=== PATIENT | female | born 1985 | race Caucasian/White ===

== ENCOUNTER 2017-03-30 02:13 | Emergency (ER) | payer BC ==
--- NOTE | 2017-03-30 02:31 | EDM.PDOC ---
ED HPI GENERAL MEDICAL PROBLEM - General Chief Complaint: General Stated Complaint: AMBULANCE Time Seen by Provider: 03/30/17 02:28 Source of Information: Reports: Patient, Family History Limitations: Reports: No Limitations - History of Present Illness INITIAL COMMENTS - FREE TEXT/NARRATIVE: brought in for episode of unresponsiveness. spouse states pt was carrying her cat then suddenly heard her fall and found her unresponsive and legs jerking. denies prior h/o, and denies h/o seizures. pt unable recall what happened and feels scared. - Related Data Allergies Allergy/AdvReac Type Severity Reaction Status Date / Time naproxen Allergy Hives Verified 03/30/17 02:15 Home Meds: Home Meds Citalopram [Celexa] 10 mg PO DAILY 03/30/17 [History] Citalopram [Celexa] 20 mg PO DAILY 03/30/17 [History] Omeprazole 20 mg PO DAILY 03/30/17 [History] Past Medical History Gastrointestinal History: Reports: GERD Psychiatric History: Reports: Anxiety Social & Family History - Tobacco Use Smoking Status *Q: Current Some Day Smoker Years of Tobacco use: 15 Packs/Tins Daily: 1 - Caffeine Use Caffeine Use: Reports: Coffee - Recreational Drug Use Recreational Drug Use: No ED ROS GENERAL - Review of Systems Review Of Systems: ROS reveals no pertinent complaints other than HPI. ED EXAM, GENERAL - Physical Exam Exam: See Below Exam Limited By: No Limitations General Appearance: Alert, WD/WN, Anxious, Other (crying hyperventilating) Eye Exam: Bilateral Eye: PERRL (pupils ess ER @ 4mm) Ears: Hearing Grossly Normal Throat/Mouth: Normal Voice, No Airway Compromise Head: Atraumatic Neck: Non-Tender, Full Range of Motion Respiratory/Chest: No Respiratory Distress Cardiovascular: Regular Rate, Rhythm GI/Abdominal: Soft, Non-Tender Neurological: Alert, Oriented, Normal Cognition, Normal Gait, No Motor/Sensory Deficits Psychiatric: Tearful Skin Exam: Warm, Dry, Normal Color Lymphatic: No Adenopathy Course - Vital Signs Last Recorded V/S: Last Vital Signs Temp 36.3 C 03/30/17 02:15 Pulse 105 H 03/30/17 02:15 Resp 21 H 03/30/17 02:15 BP 133/97 H 03/30/17 02:15 Pulse Ox 100 03/30/17 02:15 - Orders/Labs/Meds Orders: Active Orders 24 hr Category Date Time Status Head wo Cont [CT] Urgent Exams 03/30/17 02:27 Taken LORazepam [Ativan] Med 03/30/17 03:38 Once 1 mg PO ONETIME ONE Labs: Laboratory Tests 03/30/17 03/30/17 03/30/17 Range/Units 02:20 02:20 02:20 WBC 8.8 (5.0-10.0) 10^3/uL RBC 3.93 L (4.2-5.4) 10^6/uL Hgb 11.3 L (12.0-16.0) g/dL Hct 34.2 L (37.0-47.0) % MCV 87.0 (80-100) fL MCH 28.8 (27.0-34.0) pg MCHC 33.0 (33.0-35.0) g/dL Plt Count 316 (150-450) 10^3/uL Neut % (Auto) 32.8 L (42.2-75.2) % Lymph % (Auto) 50.9 H (20.5-50.1) % [place] % (Auto) 10.0 H (2-8) % Eos % (Auto) 5.7 H (1.0-3.0) % Baso % (Auto) 0.6 (0.0-1.0) % Sodium 134 L (135-145) mmol/L Potassium 3.8 (3.6-5.0) mmol/L Chloride 101 (101-111) mmol/L Carbon Dioxide 23.0 (21.0-31.0) mmol/L Anion Gap 13.8 BUN 10 (7-18) mg/dL Creatinine 0.8 (0.6-1.3) mg/dL Est Cr Clr Drug Dosing 93.63 mL/min Estimated GFR (MDRD) > 60 BUN/Creatinine Ratio 12.50 Glucose 92 (74-105) mg/dL Calcium 8.4 (8.4-10.2) mg/dl Magnesium 1.9 (1.8-2.5) mg/dL Total Bilirubin 0.4 (0.2-1.0) mg/dL AST 45 H (10-42) IU/L ALT 49 (10-60) IU/L Alkaline Phosphatase 44 (42-121) IU/L Total Protein 7.6 (6.7-8.2) g/dl Albumin 4.2 (3.2-5.5) g/dl Globulin 3.4 Albumin/Globulin Ratio 1.24 Ethyl Alcohol 247 mg/dL - Re-Assessments/Exams Free Text/Narrative Re-Assessment/Exam: 03/30/17 03:39 results discussed with pt & family who states pt has been under alot of stress recently Departure - Departure Time of Disposition: 03:39 Disposition: Home, Self-Care 01 Condition: Good Clinical Impression: Reaction, situational, acute, to stress - Discharge Information Instructions: Hyperventilation Forms: ED Department Discharge Additional Instructions: 1) rest 2) follow up with family doctor or recheck if there is any concern - My Orders Last 24 Hours: My Active Orders 03/30/17 02:27 Head wo Cont [CT] Urgent 03/30/17 03:38 LORazepam [Ativan] 1 mg PO ONETIME ONE - Assessment/Plan Last 24 Hours: My Active Orders 03/30/17 02:27 Head wo Cont [CT] Urgent 03/30/17 03:38 LORazepam [Ativan] 1 mg PO ONETIME ONE
[2017-03-30 02:45] LABS: CHLORIDE,CL 101 mmol/L (101-111); SODIUM,NA 134 mmol/L (135-145)
[2017-03-30] MEDS ORDERED: LORazepam 1 MG Tab PO ONE (03:38)
[2017-03-30 03:50] VITALS: BP 128/87
== END 2017-03-30 03:48 | disposition home or self-care (01) ==
LOC: DL.ED 02:13
DX: F43.0 Acute stress reaction (principal); K21.9 Gastro-esophageal reflux disease without esophagitis; R78.0 Finding of alcohol in blood; F17.210 Nicotine dependence, cigarettes, uncomplicated; F41.9 Anxiety disorder, unspecified; Z79.899 Other long term (current) drug therapy; Z88.8 Allergy status to other drugs, medicaments and biological substances; Y90.8 Blood alcohol level of 240 mg/100 ml or more
CPT/HCPCS: 36415; 70450; 80053; 83735; 85025; 99285; A9270; G0480

== ENCOUNTER 2017-04-04 01:56 | Emergency (ER) | payer BC ==
[2017-04-04 02:42] LABS: CHLORIDE,CL 102 mmol/L (101-111); SODIUM,NA 137 mmol/L (135-145)
[2017-04-04 03:44] VITALS: BP 110/59
--- NOTE | 2017-04-05 06:46 | EDM.PDOC ---
ED HPI GENERAL MEDICAL PROBLEM - General Chief Complaint: Neurological Problem Stated Complaint: AMBULANCE SEIZURE Time Seen by Provider: 04/04/17 02:00 Source of Information: Reports: Patient, EMS, Family History Limitations: Reports: No Limitations - History of Present Illness INITIAL COMMENTS - FREE TEXT/NARRATIVE: ED via [facility] with report of benjie reported patient talking to him in kitchen and fell against him, foaming at mouth. Lasted a couple minutes. Did not receive injury. Patient screaming on arrival, hyperventilating that can move toes, Patient also in ER on 03/30 after falling in bathroom, also during night, reported legs to have been jerking then. Head CT done then and was negative. Patient noted headaches since fall. 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 Musculoskeletal History: Reports: None Neurological History: Reports: None Psychiatric History: Reports: Anxiety Endocrine/Metabolic History: Reports: None Hematologic History: Reports: None Immunologic History: Reports: None Oncologic (Cancer) History: Reports: None Dermatologic History: Reports: None Social & Family History - Tobacco Use Smoking Status *Q: Current Some Day Smoker Years of Tobacco use: 10 Packs/Tins Daily: 0 - Caffeine Use Caffeine Use: Reports: Coffee - Recreational Drug Use Recreational Drug Use: No ED ROS GENERAL - Review of Systems Review Of Systems: See Below Constitutional: Reports: No Symptoms HEENT: Reports: No Symptoms Respiratory: Denies: Shortness of Breath Cardiovascular: Reports: No Symptoms GI/Abdominal: Reports: No Symptoms Musculoskeletal: Reports: No Symptoms Skin: Reports: No Symptoms Neurological: Reports: Headache, Numbness (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 ), Seizure Psychiatric: Reports: Anxiety - Physical Exam Exam: See Below Exam Limited By: Intoxication (ETOH odor, slurring of words, deliberate speech) General Appearance: Alert, Anxious Eye Exam: Bilateral Eye: EOMI, PERRL (4mm) Ears: Normal TMs Nose: Normal Inspection Throat/Mouth: Normal Inspection, Normal Lips, Normal Voice Head Exam: Atraumatic, Normocephalic. No: Scalp Lacerations, Scalp Swelling, Scalp Abrasions Neck: Supple, Full Range of Motion, Tender Midline (mild tenderness lwere cervical) Respiratory/Chest: No Respiratory Distress, Lungs Clear, Normal Breath Sounds Cardiovascular: Normal Peripheral Pulses, Regular Rate, Rhythm GI/Abdominal: Normal Bowel Sounds, Soft, Non-Tender Neuro Exam (Abbreviated): Alert, Oriented, Normal Cognition, Normal Reflexes, No Motor/Sensory Deficits Back Exam: Full Range of Motion. No: Paraspinal Tenderness, Vertebral Tenderness Extremities: Normal Inspection, Normal Range of Motion, Normal Capillary Refill. No: Limited Range of Motion Psychiatric: Anxious, Tearful (with lab draws. ) Skin Exam: Warm, Dry, Intact, Normal Color Course - Vital Signs Last Recorded V/S: Last Vital Signs Temp 97 F 04/04/17 01:58 Pulse 95 04/04/17 03:44 Resp 18 04/04/17 03:44 BP 110/59 L 04/04/17 03:44 Pulse Ox 99 04/04/17 03:44 Orthostatic Blood Pressure [ 108/54 Standing] Orthostatic Blood Pressure [ 112/59 Sitting] Orthostatic Blood Pressure [ 105/61 Supine] - Orders/Labs/Meds Labs: Laboratory Tests 04/04/17 04/04/17 04/04/17 Range/Units 02:07 02:07 02:15 WBC 8.9 (5.0-10.0) 10^3/uL RBC 4.04 L (4.2-5.4) 10^6/uL Hgb 11.5 L (12.0-16.0) g/dL Hct 35.4 L (37.0-47.0) % MCV 87.6 (80-100) fL MCH 28.5 (27.0-34.0) pg MCHC 32.5 L (33.0-35.0) g/dL Plt Count 331 (150-450) 10^3/uL Neut % (Auto) 37.0 L (42.2-75.2) % Lymph % (Auto) 46.2 (20.5-50.1) % [place] % (Auto) 10.6 H (2-8) % Eos % (Auto) 5.8 H (1.0-3.0) % Baso % (Auto) 0.4 (0.0-1.0) % Sodium (135-145) mmol/L Potassium (3.6-5.0) mmol/L Chloride (101-111) mmol/L Carbon Dioxide (21.0-31.0) mmol/L Anion Gap BUN (7-18) mg/dL Creatinine (0.6-1.3) mg/dL Est Cr Clr Drug Dosing Estimated GFR (MDRD) BUN/Creatinine Ratio Glucose (74-105) mg/dL Calcium (8.4-10.2) mg/dl Magnesium (1.8-2.5) mg/dL Total Bilirubin (0.2-1.0) mg/dL AST (10-42) IU/L ALT (10-60) IU/L Alkaline Phosphatase (42-121) IU/L Total Protein (6.7-8.2) g/dl Albumin (3.2-5.5) g/dl Globulin Albumin/Globulin Ratio HCG, Qual Urine Color Light yellow (YELLOW) Urine Appearance Clear (CLEAR) Urine pH 6.0 (5.0-9.0) Ur Specific [place] <= 1.005 (1.005-1.030) Urine Protein Negative (NEGATIVE) Urine Glucose (UA) Negative (NEGATIVE) Urine Ketones Negative (NEGATIVE) Urine Occult Blood Trace-intact H (NEGATIVE) Urine Nitrite Negative (NEGATIVE) Urine Bilirubin Negative (NEGATIVE) Urine Urobilinogen 0.2 (0.2-1.0) mg/dL Ur Leukocyte Esterase Negative (NEGATIVE) Urine RBC 0-5 /HPF Urine WBC 0-5 (0-5/HPF) /HPF Ur Epithelial Cells Few /HPF Urine Bacteria Few (0-FEW/HPF) /HPF Urine Opiates Screen Negative (NEGATIVE) Ur Oxycodone Screen Negative (NEGATIVE) Urine Methadone Screen Negative (NEGATIVE) Ur Barbiturates Screen Negative (NEGATIVE) U Tricyclic Antidepress Negative (NEGATIVE) Ur Phencyclidine Scrn Negative (NEGATIVE) Ur Amphetamine Screen Negative (NEGATIVE) U Methamphetamines Scrn Negative (NEGATIVE) Urine MDMA Screen Negative (NEGATIVE) U Benzodiazepines Scrn Negative (NEGATIVE) Urine Cocaine Screen Negative (NEGATIVE) U Marijuana (THC) Screen Negative (NEGATIVE) Ethyl Alcohol mg/dL 04/04/17 04/04/17 Range/Units 02:15 02:15 WBC (5.0-10.0) 10^3/uL RBC (4.2-5.4) 10^6/uL Hgb (12.0-16.0) g/dL Hct (37.0-47.0) % MCV (80-100) fL MCH (27.0-34.0) pg MCHC (33.0-35.0) g/dL Plt Count (150-450) 10^3/uL Neut % (Auto) (42.2-75.2) % Lymph % (Auto) (20.5-50.1) % [place] % (Auto) (2-8) % Eos % (Auto) (1.0-3.0) % Baso % (Auto) (0.0-1.0) % Sodium 137 (135-145) mmol/L Potassium 3.6 (3.6-5.0) mmol/L Chloride 102 (101-111) mmol/L Carbon Dioxide 24.0 (21.0-31.0) mmol/L Anion Gap 14.6 BUN 8 (7-18) mg/dL Creatinine 0.7 (0.6-1.3) mg/dL Est Cr Clr Drug Dosing TNP Estimated GFR (MDRD) > 60 BUN/Creatinine Ratio 11.42 Glucose 98 (74-105) mg/dL Calcium 8.9 (8.4-10.2) mg/dl Magnesium 2.1 (1.8-2.5) mg/dL Total Bilirubin 0.2 (0.2-1.0) mg/dL AST 50 H (10-42) IU/L ALT 58 (10-60) IU/L Alkaline Phosphatase 54 (42-121) IU/L Total Protein 7.8 (6.7-8.2) g/dl Albumin 4.3 (3.2-5.5) g/dl Globulin 3.5 Albumin/Globulin Ratio 1.23 HCG, Qual Negative Urine Color (YELLOW) Urine Appearance (CLEAR) Urine pH (5.0-9.0) Ur Specific [place] (1.005-1.030) Urine Protein (NEGATIVE) Urine Glucose (UA) (NEGATIVE) Urine Ketones (NEGATIVE) Urine Occult Blood (NEGATIVE) Urine Nitrite (NEGATIVE) Urine Bilirubin (NEGATIVE) Urine Urobilinogen (0.2-1.0) mg/dL Ur Leukocyte Esterase (NEGATIVE) Urine RBC /HPF Urine WBC (0-5/HPF) /HPF Ur Epithelial Cells /HPF Urine Bacteria (0-FEW/HPF) /HPF Urine Opiates Screen (NEGATIVE) Ur Oxycodone Screen (NEGATIVE) Urine Methadone Screen (NEGATIVE) Ur Barbiturates Screen (NEGATIVE) U Tricyclic Antidepress (NEGATIVE) Ur Phencyclidine Scrn (NEGATIVE) Ur Amphetamine Screen (NEGATIVE) U Methamphetamines Scrn (NEGATIVE) Urine MDMA Screen (NEGATIVE) U Benzodiazepines Scrn (NEGATIVE) Urine Cocaine Screen (NEGATIVE) U Marijuana (THC) Screen (NEGATIVE) Ethyl Alcohol 259 mg/dL - Radiology Interpretation Free Text/Narrative:: C-spine CT negative - Re-Assessments/Exams Free Text/Narrative Re-Assessment/Exam: NIURKA Ashley regarding patient. Recent fall and tonights hx reviewed. Potential seizure and recent fall while under influence noted. Patient accepted for further evaluation. Tx via [facility]. Departure - Departure Time of Disposition: 04:30 Disposition: DC/Tfer to Acute Hospital 02 Condition: Undetermined Clinical Impression: Seizure, Intoxication - Discharge Information Referrals: PCP,Unobtain [Primary Care Provider] - Forms: ED Department Discharge
== END 2017-04-04 05:05 ==
LOC: DL.ED 01:56
DX: R56.9 Unspecified convulsions (principal); F10.129 Alcohol abuse with intoxication, unspecified; K21.9 Gastro-esophageal reflux disease without esophagitis; F17.210 Nicotine dependence, cigarettes, uncomplicated; Z88.8 Allergy status to other drugs, medicaments and biological substances; Z79.899 Other long term (current) drug therapy; Y90.8 Blood alcohol level of 240 mg/100 ml or more
CPT/HCPCS: 36415; 72125; 80053; 80305; 81001; 83735; 84703; 85025; 99285; G0480

== ENCOUNTER 2017-10-21 21:03 | Emergency (ER) | payer BC ==
[2017-10-21 21:11] VITALS: BP 132/78
[2017-10-21] MEDS ORDERED: methylPREDNISolone Sodium Succinate 125 MG/2 ML SDV IM ONE (21:19)
[2017-10-21] MEDS ORDERED: Albuterol/Ipratropium 3.0-0.5 MG/3 ML Neb Soln NEB ONE ×2 (21:19→22:08)
[2017-10-21] MEDS ORDERED: Codeine/Promethazine 10-6.25 MG/5 ML Syrup 5 ML UD Cup PO ONE (21:19)
--- NOTE | 2017-10-21 21:24 | EDM.PDOC ---
ED HPI GENERAL MEDICAL PROBLEM - General Chief Complaint: Respiratory Problem Stated Complaint: COUGH, TROUGH BREATHING, EARS RINGING Time Seen by Provider: 10/21/17 21:20 Source of Information: Reports: Patient History Limitations: Reports: No Limitations - History of Present Illness INITIAL COMMENTS - FREE TEXT/NARRATIVE: h/o asthma use inhaler only now. been non stop coughing since thought was just a cold but not getting better and worse now. 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 Musculoskeletal History: Reports: None Neurological History: Reports: None Psychiatric History: Reports: Anxiety Endocrine/Metabolic History: Reports: None Hematologic History: Reports: None Immunologic History: Reports: None Oncologic (Cancer) History: Reports: None Dermatologic History: Reports: None Social & Family History - Tobacco Use Smoking Status *Q: Current Some Day Smoker Years of Tobacco use: 16 Packs/Tins Daily: 0.1 - Caffeine Use Caffeine Use: Reports: Coffee - Recreational Drug Use Recreational Drug Use: No ED ROS GENERAL - Review of Systems Review Of Systems: ROS reveals no pertinent complaints other than HPI. ED EXAM, GENERAL - Physical Exam Exam: See Below Exam Limited By: No Limitations General Appearance: Alert, WD/WN, Mild Distress, Other (cough spasms) Ears: Hearing Grossly Normal Throat/Mouth: Normal Voice, No Airway Compromise Head: Atraumatic Neck: Non-Tender, Full Range of Motion Respiratory/Chest: Decreased Breath Sounds, Rhonchi, Wheezing. No: Retractions Cardiovascular: Regular Rate, Rhythm GI/Abdominal: Soft, Non-Tender Neurological: Alert, Oriented, Normal Cognition, Normal Gait, No Motor/Sensory Deficits Psychiatric: Normal Affect, Normal Mood Skin Exam: Warm, Dry, Normal Color Lymphatic: No Adenopathy Course - Vital Signs Last Recorded V/S: Last Vital Signs Temp 36.2 C 10/21/17 21:08 Pulse 105 H 10/21/17 22:09 Resp 18 10/21/17 21:08 BP 132/78 10/21/17 21:08 Pulse Ox 99 10/21/17 21:08 - Orders/Labs/Meds Orders: Active Orders 24 hr Category Date Time Status RT Aerosol Therapy [RC] ASDIRECTED Care 10/21/17 21:20 Active RT Aerosol Therapy [RC] ASDIRECTED Care 10/21/17 22:09 Active Meds: Medications Discontinued Medications Generic Name Dose Route Start Last Admin Trade Name Umm PRN Reason Stop Dose Admin Albuterol/Ipratropium 3 ml 10/21/17 21:19 10/21/17 21:24 Duoneb 3.0-0.5 Mg/3 Ml NEB 10/21/17 21:20 3 ml ONETIME ONE Administration Albuterol/Ipratropium 3 ml 10/21/17 22:08 10/21/17 22:17 Duoneb 3.0-0.5 Mg/3 Ml NEB 10/21/17 22:09 3 ml ONETIME ONE Administration Methylprednisolone Sodium Succinate 125 mg 10/21/17 21:19 10/21/17 21:32 Solu-Medrol IM 10/21/17 21:20 125 mg ONETIME ONE Administration Promethazine HCl/Codeine 5 ml 10/21/17 21:19 10/21/17 21:32 Phenergan With Codeine PO 10/21/17 21:20 5 ml ONETIME ONE Administration - Re-Assessments/Exams Free Text/Narrative Re-Assessment/Exam: 10/21/17 22:07 s/p duoneb + IM solumed + phenergan codeine = somewhat better 10/21/17 22:40 results discussed with pt who is feeling better Departure - Departure Time of Disposition: 22:41 Disposition: Home, Self-Care 01 Condition: Good Clinical Impression: Asthmatic bronchitis with acute exacerbation Qualifiers: Asthma severity: moderate Asthma persistence: persistent Qualified Code(s): J45.41 - Moderate persistent asthma with (acute) exacerbation - Discharge Information Instructions: Acute Bronchitis, Adult, [id number] Forms: ED Department Discharge Additional Instructions: 1) rest 2) don't sleep flat at night rx given; medrol dospak phenergan codeine syrup qid prn albuterol 2.5mg solution tid prn - My Orders Last 24 Hours: My Active Orders 10/21/17 21:20 RT Aerosol Therapy [RC] ASDIRECTED 10/21/17 22:09 RT Aerosol Therapy [RC] ASDIRECTED - Assessment/Plan Last 24 Hours: My Active Orders 10/21/17 21:20 RT Aerosol Therapy [RC] ASDIRECTED 10/21/17 22:09 RT Aerosol Therapy [RC] ASDIRECTED
== END 2017-10-21 22:50 | disposition home or self-care (01) ==
LOC: DL.ED 21:03
DX: J45.41 Moderate persistent asthma with (acute) exacerbation (principal); F17.210 Nicotine dependence, cigarettes, uncomplicated; Z88.6 Allergy status to analgesic agent; Z79.899 Other long term (current) drug therapy
CPT/HCPCS: 71046; 94640; 96372; 99285; A9270; J2930

== ENCOUNTER 2018-02-23 01:29 | Emergency (ER) | payer BC ==
[2018-02-23 01:54] VITALS: BP 120/67
[2018-02-23] MEDS ORDERED: LORazepam 1 MG Tab PO ONE (01:58)
[2018-02-23] MEDS ORDERED: levETIRAcetam 500 MG Tab PO ONE (01:59)
--- NOTE | 2018-02-23 02:03 | EDM.PDOC ---
ED HPI GENERAL MEDICAL PROBLEM - General Chief Complaint: Neurological Problem Stated Complaint: SEIZURE [id number] Time Seen by Provider: 02/23/18 02:00 Source of Information: Reports: Patient, Family History Limitations: Reports: No Limitations - History of Present Illness INITIAL COMMENTS - FREE TEXT/NARRATIVE: spouse states pt started having seizure activity states she normally doesn't have the grand mal type but has the foot stiffness spasm type. pt states she is having problem moving her left foot and become quite emotionally agitated. 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 - Physical Exam Exam: See Below Exam Limited By: No Limitations General Appearance: Alert, WD/WN, Anxious, Mild Distress Eye Exam: Bilateral Eye: PERRL (pupils ess ER @ 4mm) Ears: Hearing Grossly Normal Throat/Mouth: Normal Voice, No Airway Compromise Head Exam: Atraumatic Neck: Non-Tender, Full Range of Motion Respiratory/Chest: No Respiratory Distress Cardiovascular: Regular Rate, Rhythm GI/Abdominal: Soft, Non-Tender Neuro Exam (Abbreviated): Alert, Oriented, Normal Cognition, Other (left foot spastic) Extremities: Normal Inspection Psychiatric: Anxious, Tearful Skin Exam: Warm, Dry, Normal Color Course - Vital Signs Last Recorded V/S: Last Vital Signs Temp 36.7 C 02/23/18 01:53 Pulse 110 H 02/23/18 01:53 Resp 18 02/23/18 01:53 BP 120/67 02/23/18 01:53 Pulse Ox 100 02/23/18 01:53 - Orders/Labs/Meds Labs: Laboratory Tests 02/23/18 02/23/18 Range/Units 02:20 02:20 WBC 7.2 (5.0-10.0) 10^3/uL RBC 3.23 L (4.2-5.4) 10^6/uL Hgb 9.3 L D (12.0-16.0) g/dL Hct 28.9 L (37.0-47.0) % MCV 89.5 (80-100) fL MCH 28.8 (27.0-34.0) pg MCHC 32.2 L (33.0-35.0) g/dL Plt Count 229 D (150-450) 10^3/uL Neut % (Auto) 45.0 (42.2-75.2) % Lymph % (Auto) 38.8 (20.5-50.1) % [place] % (Auto) 12.0 H (2-8) % Eos % (Auto) 3.5 H (1.0-3.0) % Baso % (Auto) 0.7 (0.0-1.0) % Add Manual Diff Yes Neutrophils % (Manual) 47 (42-75) % Band Neutrophils % 2 % Lymphocytes % (Manual) 42 (20-50) % Atypical Lymphs % 0 % Monocytes % (Manual) 6 (2-8) % Eosinophils % (Manual) 3 (1-3) % Basophils % (Manual) 0 Hypochromasia 1+ slight Sodium 139 (135-145) mmol/L Potassium 3.9 (3.6-5.0) mmol/L Chloride 106 (101-111) mmol/L Carbon Dioxide 25.0 (21.0-31.0) mmol/L Anion Gap 11.9 BUN 11 (7-18) mg/dL Creatinine 0.8 (0.6-1.3) mg/dL Est Cr Clr Drug Dosing 92.76 mL/min Estimated GFR (MDRD) > 60 BUN/Creatinine Ratio 13.75 Glucose 96 (74-105) mg/dL Calcium 8.7 (8.4-10.2) mg/dl Total Bilirubin 0.3 (0.2-1.0) mg/dL AST 31 (10-42) IU/L ALT 39 (10-60) IU/L Alkaline Phosphatase 48 (42-121) IU/L Total Protein 7.0 (6.7-8.2) g/dl Albumin 3.9 (3.2-5.5) g/dl Globulin 3.1 Albumin/Globulin Ratio 1.26 Meds: Medications Discontinued Medications Generic Name Dose Route Start Last Admin Trade Name Freq PRN Reason Stop Dose Admin Levetiracetam 500 mg 02/23/18 01:59 02/23/18 02:17 Keppra PO 02/23/18 02:00 500 mg ONETIME ONE Administration Lorazepam 1 mg 02/23/18 01:58 02/23/18 02:17 Ativan PO 02/23/18 01:59 1 mg ONETIME ONE Administration - Re-Assessments/Exams Free Text/Narrative Re-Assessment/Exam: 02/23/18 03:16 results discussed with pt who is feeling good now. Departure - Departure Time of Disposition: 03:16 Disposition: Home, Self-Care 01 Condition: Good Clinical Impression: Reaction, situational, acute, to stress - Discharge Information Forms: ED Department Discharge Additional Instructions: 1) rest 2) take your meds as directed 3) recheck if there is any change or concern
[2018-02-23 02:47] LABS: ANION GAP 11.9; CHLORIDE,CL 106 mmol/L (101-111); SODIUM,NA 139 mmol/L (135-145)
== END 2018-02-23 03:24 | disposition home or self-care (01) ==
LOC: DL.ED 01:29
DX: F43.0 Acute stress reaction (principal); F17.210 Nicotine dependence, cigarettes, uncomplicated; Z88.5 Allergy status to narcotic agent; Z79.899 Other long term (current) drug therapy
CPT/HCPCS: 36415; 80053; 85025; 99283; A9270

== ENCOUNTER 2021-08-05 02:24 | Emergency (ER) | payer BC ==
[2021-08-05] MEDS ORDERED: Albuterol/Ipratropium 3.0-0.5 MG/3 ML Neb Soln NEB ONE (02:42)
[2021-08-05 02:43] VITALS: BP 124/92; PULSE 112
== END 2021-08-05 03:08 | disposition home or self-care (01) ==
LOC: DL.ED 02:24
DX: J45.21 Mild intermittent asthma with (acute) exacerbation (principal); K21.9 Gastro-esophageal reflux disease without esophagitis; Z86.16 Personal history of COVID-19; Z87.891 Personal history of nicotine dependence; Z88.6 Allergy status to analgesic agent; Z79.899 Other long term (current) drug therapy
CPT/HCPCS: 94640; 99284-25; J7620-GY